=== PATIENT | male | born 1960 | race Caucasian/White ===

== ENCOUNTER 2016-09-06 14:16 | Emergency (ER) | payer MEDICARE ==
[~2016-09-06] VITALS: Ht 177.8 cm; Wt 86.5 kg
[~2016-09-06 14:16] MED LIST: ASCO500T10 PO; ASPI-557 PO; ATOR40TA64 PO; CARV6.252 PO; CLOP75TA PO; DOCU-175 PO; FERR-70 PO; MECL12.585 PO; MULT-933 PO
[2016-09-06 14:18] VITALS: TEMP 98.4; Ht 177.8 cm; Wt 86.5 kg
--- NOTE | 2016-09-06 14:27 | NUR ---
CT PT TO CT VIA [facility].
--- NOTE | 2016-09-06 14:36 | NUR ---
CT PT RETURNED.
--- NOTE | 2016-09-06 14:46 | DI ---
Indication: ITS.REASON: 56-year-old male with three-day lost vision right eye PROCEDURE: CT HEAD W/O CONTRAST: Encounter: Initial Comparison: CT head, 07/21/2016 Technique: Axial CT images through the head were performed without contrast. Iterative Reconstruction dose reducing technique was utilized. FINDINGS: The ventricles are of normal size, shape, and contour for the patient's age. There is no evidence of mass effect. The bennett-white junction is well-maintained. The visual pathways appear satisfactory. There is no evidence of midline displacement. No hemorrhage, signs of acute territorial stroke, mass lesions, or edema is evident. The visualized portions of the skull base, midface, and calvarium demonstrate no abnormality. The paranasal sinuses are well aerated and free of significant disease. The tympanic and mastoid cavities appear normal. IMPRESSION: No acute intracranial abnormality or hemorrhage. .
--- NOTE | 2016-09-06 14:53 | ERPDOC ---
Departure Disposition Decision Date: Sep 06, 2016 Disposition Decision Time: 15:25 Disposition: 01 DISCHARGED HOME, SELF-CARE Impression Impression Impression: Primary Impression: Vision loss, right eye Severity: Moderate Condition: Stable Seen By: Physician only Referrals: YARITZA DIAZ MD (Family) Patient Instructions: Blurred Vision (ED) Problems/Meds/Labs Reviewed?: Yes Medications reviewed and manag: Yes Additional Instructions: Go to Dr. Choi's office which is located with Dr. Diaz's office Follow up care ordered?: Yes Mental Status: Alert, Oriented HPI - CVA/Neuro General Stated Complaint: VISION LOSS RIGHT EYE Time Seen by Provider: 14:52 Source: patient Exam Limitations: no limitations HPI - CVA/NEURO Initial Comments Patient is a 56-year-old male presents emergency room for evaluation of a 2 day history of worsening vision in his right eye. Patient started having blurry vision yesterday, today is much worse. Patient's had no headaches no fevers no chills no localizing symptoms otherwise. Patient today became concerned so decided to present to the ER for evaluation. Allergies: Coded Allergies: No Known Allergies (Unverified , 07/20/16) Past History Patient Surgical History surgical removal of left elbow left hip replacement Left lower lobe ectomy Past Medical History Metabolic: hypertension Cardiac: other Musculoskeletal: osteoarthritis, other Surgical History General: exploratory laparotomy Cardiac: other Joint: elbow, hip Family History Family PMH: FOUND: ID, hypertension Vaccines Hx Influenza Vaccination: Yes (APR 2014) Hx Pneumococcal Vaccination: Yes (APR 2014) Hx Tetanus, Diptheria, Pertuss: Yes (APR 2014) Social History Substance Use Type: does not use Marital Status: Sexuality: female partner Household Members: spouse Review of Systems Constitutional Constitutional: DENIES: appetite decrease, chills, fever Eyes Vision: blurring, loss of visual naylor ENMT Mouth/Throat: DENIES: scratchy throat, sore throat Cardiovascular Cardiac: DENIES: chest pain Pulmonary Respiratory: DENIES: cough, sputum GI Upper Abdomen: DENIES: nausea, pain, vomiting Lower Abdomen: DENIES: constipation, diarrhea, pain General: DENIES: frequency, urgency Integumentary Skin: DENIES: color change, itching, rash Physical Exam General General Nourishment: well nourished, well developed General Body Habitus: well groomed Vitals and Pain Weight: Kilograms: Height (feet): 5 Height (inches): 10.00 Triage Pain Scale: RN VS reviewed by Provider: Yes Eyes (brief) Eyes Brief: found: EOMI, PERRL Eyes Eyes Detail : Location: Right Foreign Body: FOUND no abnormalities Pupils: FOUND 4 mm, FOUND Round, FOUND Reactivity Normal Cornea: FOUND no abnormalities Conjunctiva: FOUND no abnormalities Sclera: FOUND no abnormalities Anterior Chamber: FOUND no abnormalities Lens: FOUND no abnormalities Eyelids: FOUND no abnormalities ENMT (brief) ENMT Brief: FOUND: TM clear, TM good light reflex, ear canals clear, mucosa moist, normal dentition, NOT FOUND: nasal erythema, nasal exudate, nasal swelling, pharnyx erythema, tonsillar deviation Neck (brief) Neck: NOT FOUND: adenopathy, spasm, tenderness Respiratory (brief) Respiratory: FOUND: clear all naylor, equal bilaterally, NOT FOUND: rales, wheezes Cardiovascular (brief) Cardiac: FOUND: regular rate, regular rhythm Capillary Refill: <2 sec Differential Diagnoses Considering: Thrombotic CVA, Hemorrhagic CVA, Other (retinal hemorrhage retinal detachment) Procedures Procedures Performed Procedures Performed: Eye Slit Lamp Exam Eye Procedure Procedure Eye : Eyes: Right eye Topical Anesthetic Drops: YES: Tetracaine drops Slit Lamp Used?: No Cornea: NOT FOUND: abrasion, ulcer Anterior Chamber: NOT FOUND: hyphema, hypopion, wheal & flare Posterior Chamber: NOT FOUND: AV nicking, copper wiring, floaters, hemorrhage Lids: NOT FOUND: chalazion, sty Comments John-Pen 14 Progress Results/Orders Orders Procedure Category Date Status Time Ct Head W/O Contrast CT 09/06/16 Resulted 14:22 Tetracaine 0.5% Eye PHA 09/06/16 Complete Drops (Tetracaine 0. 15:00 Medications Current ED Medications Tetracaine HCl (Tetracaine 0.5% Eye Drops) 1 drop O ONCE BOTH EYES Last administered on 09/06/16t 15:06; Start 09/06/16 at 15:00; Stop 09/06/16 at 15:01 ; Status DC CT CT : CT: Head no contrast Interpretation: Normal, Reviewed Written Report JANINA GAUTAM MD Sep 06, 2016 14:53
--- NOTE | 2016-09-06 14:54 | NUR ---
DR DR GAUTAM AT BEDSIDE.
[2016-09-06] MEDS ORDERED: TETRACAINE 0.5% EYE DROPS 4ml BOTTLE BOTH EYES ONE (15:00)
--- NOTE | 2016-09-06 15:15 | NUR ---
VISUAL ACUITY PER DR GAUTAM, NO NEED TO PERFORM VISUAL ACUITY AT THIS TIME.
[2016-09-06 15:30] VITALS: BP 95/58; PULSE 77; RESP 16; O2SAT 97
--- NOTE | 2016-09-06 15:33 | NUR ---
AMANDA PANTOJA RN TRANSPORTING PT VIA WC TO DR HOWARD'S OFFICE.
== END 2016-09-06 15:33 | disposition home or self-care (01) ==
LOC: ED 14:16
DX: H54.61 Unqualified visual loss, right eye, normal vision left eye (principal); I10 Essential (primary) hypertension